=== PATIENT | male | born 1970 | race Caucasian/White ===

== ENCOUNTER 2023-04-28 08:33 | Day surgery (SDC) | payer BC, OTHER ==
[~2023-04-28] VITALS: Ht 185.4 cm; Wt 125.4 kg
[~2023-04-28 08:33] MED LIST: ALOG25TA PO; ASPI-161 PO; METO50TA7 PO; NS 1,000 ML IV ONE; SIMV40TA20 PO; THERTAB52 PO; VALS1TAB67 PO
[2023-04-28] MEDS ORDERED: LIDOCAINE 2% 100MG/5ML SDV (FOR ANES.) As Ordered ONE (09:32)
[2023-04-28] MEDS ORDERED: propofoL 200 MG/20 ML VIAL As Ordered ONE ×2 (09:32→09:47)
[2023-04-28 10:12] VITALS: BP 125/80; O2SAT 97
== END 2023-04-28 10:28 | disposition home or self-care (01) ==
LOC: M OPP 08:33
PROVIDERS: ATTEND Surgery
DX: Z12.11 Encounter for screening for malignant neoplasm of colon (principal); K63.5 Polyp of colon; K64.2 Third degree hemorrhoids; K57.30 Diverticulosis of large intestine without perforation or abscess without bleeding; Z87.891 Personal history of nicotine dependence; Z79.02 Long term (current) use of antithrombotics/antiplatelets; Z79.82 Long term (current) use of aspirin; Z79.899 Other long term (current) drug therapy; Z91.013 Allergy to seafood